=== PATIENT | male | born 1960 | race African-American/Black ===

== ENCOUNTER 2018-09-20 20:35 | Emergency (ER) | payer MEDICAID ==
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
[2018-09-20] MEDS ORDERED: IBUPROFEN 400 MG TABLET PO ONE (21:16)
--- NOTE | 2018-09-22 14:14 | RADIOLOGY REPORT ---
EXAM: RIGHT KNEE COMPLETE HISTORY: KNEE PAIN. PATIENT STATES HISTORY OF MENISCAL TEAR. TECHNIQUE: Four views of the right knee were obtained. Comparison: None. FINDINGS: There is normal bone mineralization. No acute fracture, dislocation , or destructive bone lesion is seen. Tricompartmental osteoarthritic changes are identified, mild in degree, most pronounced in the medial compartment. No definite joint effusion. IMPRESSION: NO ACUTE FRACTURE NOR DISLOCATION. TRICOMPARTMENTAL OSTEOARTHRITIC CHANGES. JOB NUMBER: [id number] MTDD
== END 2018-09-20 21:49 | disposition home or self-care (01) ==
LOC: ER 20:35
DX: G89.21 Chronic pain due to trauma (principal); M25.561 Pain in right knee; K08.89 Other specified disorders of teeth and supporting structures; F17.210 Nicotine dependence, cigarettes, uncomplicated
CPT/HCPCS: 99283